=== PATIENT | male | born 2000 | race Caucasian/White ===

== ENCOUNTER 2024-03-11 12:10 | Emergency (ER) | payer SELFPAY ==
[2024-03-11 12:31] VITALS: BP 109/70; PULSE 94; O2SAT 95
[2024-03-11 13:00] VITALS: BP 124/64; BP 131/71; PULSE 81; PULSE 82; RESP 20; TEMP 36.7; O2SAT 96; O2SAT 97; BMI 31.6
--- NOTE | 2024-03-11 13:02 | ED_ITS ---
Discharge Plan Disposition Patient Disposition: Home, Self-Care Condition: Good Chief Complaint: Wound/Laceration Referrals Follow up/Referrals: Provider,Referral, MD [Primary Care Provider] - See instructions Clinical Impressions Clinical Impression: Laceration of left thumb Instructions Patient Instructions: DI for Laceration Repair Discharge ED Provider: Vince Thorpe Adult HPI General Chief complaint: Wound/Laceration Stated complaint: AO 03/10- laceration to L thumb Time Seen by Provider: 03/11/24 12:55 History of Present Illness HPI narrative: 23-year-old male with no pertinent past medical history presents today for evaluation concerning left thumb laceration which occurred on yesterday. Patient states that he was cutting with a knife when he accidentally hit his thumb. His tetanus is not up-to-date. He has not taken any pain medications to assist. He denies any other associated injuries. No further complaints. [facility] Disclaimer: The information contained in this section may have been updated after the patient was seen, as this information can be updated by other users. Social History Smoking Status: Unknown if ever smoked alcohol intake: never current occupational status: employed Travel in the last 8 weeks: None ROS Obtained: Yes All systems reviewed & no additional complaints except as documented Physical Exam General General appearance: alert and in no apparent distress Head Head exam: atraumatic and normocephalic Eye Eye exam: Present normal appearance, PERRL and EOMI ENT ENT exam: Present normal oropharynx and mucous membranes moist Neck Neck exam: Present full ROM; Absent meningismus Respiratory Respiratory exam: Absent respiratory distress, wheezes, stridor or accessory muscle use Cardiovascular Cardiovascular exam: Present normal rhythm Abdominal Exam Abdominal exam: Present soft; Absent distention, tenderness, guarding, rebound or rigidity Neurological Exam Neurological exam: Present alert, oriented X3 and CN II-XII intact; Absent motor sensory deficit Psychiatric Psychiatric exam: Present normal affect and normal mood Skin Skin exam: Present warm, dry and other (Superficial 1 cm laceration to the volar aspect of the left thumb with no active bleeding) Medical Decision Making Medical Records Medical records reviewed: Yes I reviewed the patient's medical records. Jeramy Inquiry Pt receiving controlled substance: No Jeramy was queried for this patient: No Medical Decision Narrative: 23-year-old male with no pertinent past medical history presents today for evaluation concerning left thumb laceration which occurred on yesterday. Patient states that he was cutting with a knife when he accidentally hit his thumb. His tetanus is not up-to-date. On assessment he was hemodynamically stable and in no acute distress. Afebrile. He did have a 1 cm superficial laceration to the volar aspect of the left thumb with no active bleeding. Minimal tenderness to palpation. Palpable radial pulses. Other physical exam findings unremarkable differential diagnoses include not limited to laceration, among others. Patient's laceration was cleaned with soap and water and was repaired with Dermabond. He tolerated well. I provided him with ibuprofen and updated his tetanus. Discussed ED workup and home laceration care. He verbalized understanding and agreed with plan. Provided with return precautions. Subsequently discharged. Critical Care Critical Care Time Critical Care Time: No
[2024-03-11] MEDS: IBUPROFEN 800 MG TABLET PO (13:12)
[2024-03-11] MEDS: TETANUS-DIPHTH TOXOID, ADULT 0.5ML SYR 0.5 ML IM (13:13)
[2024-03-11 13:24] VITALS: BP 124/64; PULSE 79; RESP 20; TEMP 36.7; O2SAT 95
== END 2024-03-11 13:26 | disposition home or self-care (01) ==
PROVIDERS: Emergency Provider Emergency Medicine
DX: S61.012A Laceration without foreign body of left thumb without damage to nail, initial encounter (principal); W26.0XXA Contact with knife, initial encounter; Z23 Encounter for immunization
CPT/HCPCS: 12001; 90471; 90714; 99283